=== PATIENT | female | born 1995 | race Caucasian/White ===

== ENCOUNTER 2021-07-01 00:43 | Emergency (ER) | payer BC, OTHER ==
[2021-07-01 01:32] LABS: HEMOGLOBIN 12.4 gm/dl (12.3-15.3); RED BLOOD COUNT 4.3 M/UL (4.00-5.10); WHITE BLOOD COUNT 9.1 K/UL (4.5-11.0)
[2021-07-01 01:45] LABS: BUN/CREATININE RATIO 12 (0-10)
[2021-07-01] MEDS ORDERED: OMNICEF 300 MG300 MG PO (03:25)
[2021-07-01] MEDS ORDERED: ZOFRAN ODT 4 MG4 MG PO (03:25)
[2021-07-01] MEDS ORDERED: BENTYL 20MG TAB20 MG PO (03:25)
== END 2021-07-01 04:20 | disposition home or self-care (01) ==
LOC: ER1 00:43
PROVIDERS: Family Medicine
DX: E10.65 Type 1 diabetes mellitus with hyperglycemia (principal); N39.0 Urinary tract infection, site not specified; Z96.41 Presence of insulin pump (external) (internal); Z88.8 Allergy status to other drugs, medicaments and biological substances
CPT/HCPCS: 80053; 81001; 82009; 82803; 82962; 83690; 84703; 85025; 96374; 96375; 99283; J0696; J2405

== ENCOUNTER 2021-09-02 04:56 | Emergency (ER) | payer BC, OTHER ==
[~2021-09-02 04:56] MED LIST: BENTYL 20MG TAB20 MG PO; OMNICEF 300 MG300 MG PO; ZOFRAN ODT 4 MG4 MG PO
[2021-09-02 06:31] LABS: HEMOGLOBIN 13.8 gm/dl (12.3-15.3); RED BLOOD COUNT 4.78 M/UL (4.00-5.10); WHITE BLOOD COUNT 14.4 K/UL (4.5-11.0)
[2021-09-02 06:57] LABS: BUN/CREATININE RATIO 15 (0-10)
[2021-09-02 12:20] LABS: BUN/CREATININE RATIO 15 (0-10)
[2021-09-02] MEDS ORDERED: METRONIDAZOLE500 MG PO (13:08)
[2021-09-02] MEDS ORDERED: ZOFRAN ODT 4 MG4 MG PO (13:08)
== END 2021-09-02 14:42 | disposition home or self-care (01) ==
LOC: ER1 04:56
PROVIDERS: Emergency Medicine; Physician Assistant
DX: K52.9 Noninfective gastroenteritis and colitis, unspecified (principal); E86.0 Dehydration; E11.9 Type 2 diabetes mellitus without complications; Z20.822 Contact with and (suspected) exposure to COVID-19
CPT/HCPCS: 0240U; 76705; 80048; 80053; 81001; 82009; 82150; 82800; 83605; 83690; 83735; 84703; 85025; 87040; 87086; 96374; 96375; 99284; J0696; J1170; J1885; J2270; J2405; J2765; Q9967

== ENCOUNTER 2021-12-14 23:55 | Emergency (ER) | payer BC, OTHER ==
[~2021-12-14 23:55] MED LIST changes: +METRONIDAZOLE500 MG PO
[2021-12-15 02:32] LABS: HEMOGLOBIN 12.4 gm/dl (12.3-15.3); RED BLOOD COUNT 4.34 M/UL (4.00-5.10); WHITE BLOOD COUNT 8.7 K/UL (4.5-11.0)
[2021-12-15 02:52] LABS: BUN/CREATININE RATIO 15 (0-10)
[2021-12-15] MEDS ORDERED: VISTARIL50 MG PO (04:51)
[2021-12-15] MEDS ORDERED: CEPHALEXIN500 M1 PO (04:51)
== END 2021-12-15 06:00 | disposition home or self-care (01) ==
LOC: ER1 23:55
PROVIDERS: Physician Assistant
DX: R41.82 Altered mental status, unspecified (principal); T42.4X5A Adverse effect of benzodiazepines, initial encounter; N39.0 Urinary tract infection, site not specified; E10.9 Type 1 diabetes mellitus without complications; Z88.5 Allergy status to narcotic agent
CPT/HCPCS: 80053; 80307; 81001; 84703; 85025; 99284; G0480